=== PATIENT | male | born 1960 | race African-American/Black ===

== ENCOUNTER 2021-11-26 09:10 | Emergency (ER) | payer BC, OTHER ==
[2021-11-26] MEDS ORDERED: Losartan 50 MG Tab PO ONE (09:32)
[2021-11-26] MEDS ORDERED: Sodium Chloride 0.9% 10 ML Syringe FLUSH PRN (09:33)
[2021-11-26] MEDS ORDERED: Sodium Chloride 0.9% 2.5 ML Syringe FLUSH PRN (09:33)
[2021-11-26 09:59] LABS: CARBON DIOXIDE,CO2 28.3 mmol/L (21.0-32.0); POTASSIUM,K 3.4 mmol/L (3.5-5.1)
[2021-11-26] MEDS ORDERED: Aspirin 81 MG Tab.Chew PO ONE (10:10)
[2021-11-26] MEDS ORDERED: Clopidogrel 75 MG Tab PO ONE (10:11)
[2021-11-26] MEDS ORDERED: Ondansetron 4 MG/2 ML SDV IVPUSH ONE (10:12)
[2021-11-26] MEDS: Nitroglycerin 0.4 MG Tab.SL SL PRN ×3 (10:20→10:30)
[2021-11-26] MEDS ORDERED: Heparin Sodium 5,000 Units/ML Vial IVPUSH STA (10:46)
[2021-11-26] MEDS ORDERED: Heparin Sodium/0.45% NaCl 500 ML IV STA (10:47)
[2021-11-26] MEDS ORDERED: Metoprolol Tartrate 5 MG/5 ML SDV IVPUSH STA (11:10)
[2021-11-26] MEDS ORDERED: Metoprolol Tartrate 5 MG/5 ML SDV ONE (11:11)
== END 2021-11-26 13:39 ==
LOC: MW.ED 09:10
DX: U07.1 COVID-19 (principal); I21.4 Non-ST elevation (NSTEMI) myocardial infarction; I16.1 Hypertensive emergency; I10 Essential (primary) hypertension; E11.9 Type 2 diabetes mellitus without complications; Z79.899 Other long term (current) drug therapy; Z79.84 Long term (current) use of oral hypoglycemic drugs
CPT/HCPCS: 36415; 71045; 80053; 81001; 83690; 84484; 85025; 85730; 87635; 93005; 96365; 96375; 99285; A9270; J1644; J2405; J3490; 93010; 99291; U0002